=== PATIENT | male | born 1970 | race Caucasian/White ===

== ENCOUNTER 2020-06-22 00:35 | Outpatient (CLI) | payer BC, SELFPAY ==
--- NOTE | 2020-06-22 13:10 | DI.US_ITS ---
EXAM: US RENAL CLINICAL HISTORY: NEPHROLITHIASIS TECHNIQUE: Ultrasound performed using standard protocol. COMPARISON: No exams were available for comparison FINDINGS: Renal ultrasound was performed according to the usual protocol. Kidneys are normal in size and shape . There is no evidence of hydronephrosis or renal mass. There are 2 echogenic foci seen in the right renal midpole which show posterior acoustic shadowing an d twinkle artifact, these findings are consistent with renal calculi, nonobstructing. These measure 3-4 millimeters in diameter. No left renal calculi identified by ultrasound criteria. Ureteral jets are visualized bilaterally. Pre and postvoid urinary bladder volume measurements are 3 45 cc and 0 cc respectively, bladder appears intrinsically intact. IMPRESSION: Findings consistent with right renal nonobstructing nephrolithiasis. No other significant findings. DATA REPOSITORY:
== END 2020-06-22 00:55 ==
PROVIDERS: PCP Nurse Practitioner; Visit Provider Urology
DX: N20.0 Calculus of kidney (principal)
CPT/HCPCS: 76770

== ENCOUNTER 2020-06-28 00:28 | Outpatient (CLI) | payer BC, SELFPAY ==
--- NOTE | 2020-06-28 08:45 | DI.MRI_ITS ---
EXAM: MR LIMITED EXAM CLINICAL HISTORY: SHOULDER PAIN,LT,M25.519. TECHNIQUE: Multiplanar multisequence MRI was performed. COMPARISON: No exams were available for comparison FINDINGS: The patient was unable to complete the examination due to claustrophobia. Attempts to complete the e xamination 3rd on both 06/28 and 06/29/2020. The study is nondiagnostic. Hypertrophic changes are se en at the acromioclavicular joint. Does appear to be mild tendinosis of the subscapularis tendon. F luid is seen in the subdeltoid region. IMPRESSION: Nondiagnostic study as the patient was unable to complete the full examination. DATA REPOSITORY:
== END 2020-06-28 00:48 ==
PROVIDERS: PCP Nurse Practitioner; Visit Provider Nurse Practitioner
DX: M25.512 Pain in left shoulder (principal)
CPT/HCPCS: 76498

== ENCOUNTER 2020-06-29 02:40 | Outpatient (CLI) | payer BC, SELFPAY ==
[2020-06-29 10:43] LABS: Hemoglobin A1C 5.2 % (<5.7)
[2020-06-29 10:54] LABS: ALT 34 U/L (16-63); AST 17 U/L (15-37); Albumin 3.9 g/dL (3.4-5.0); Alkaline Phosphatase 70 U/L (46-116); Bilirubin, Total 0.5 mg/dL (0.2-1.0); CREATININE 0.92 mg/dL (0.70-1.30); Potassium 4.1 mmol/L (3.5-5.1); Total Protein 6.7 g/dL (6.4-8.2)
[2020-06-29 11:05] LABS: Calculated LDL 85 mg/dL (<100); Cholesterol 151 mg/dL (<200); HDL Cholesterol 38 mg/dL (40-60); Triglyceride 143 mg/dL (<150)
== END 2020-06-29 03:00 ==
PROVIDERS: PCP Nurse Practitioner; Visit Provider Nurse Practitioner
DX: I10 Essential (primary) hypertension (principal); K76.0 Fatty (change of) liver, not elsewhere classified; Z13.6 Encounter for screening for cardiovascular disorders; Z13.1 Encounter for screening for diabetes mellitus
CPT/HCPCS: 36415; 80061; 80076; 82565; 83036; 84132

== ENCOUNTER 2020-09-01 03:08 | Outpatient (CLI) | payer BC, SELFPAY ==
[2020-09-01 13:53] LABS: Anion Gap 5.6 mmol/L (3-11); BUN 12 mg/dL (7-18); CO2 30.4 mmol/L (21.0-32.0); CREATININE 0.98 mg/dL (0.70-1.30); Calcium 8.9 mg/dL (8.5-10.1); Chloride 103 mmol/L (98-107); Glucose 97 mg/dL (74-106); Potassium 4.2 mmol/L (3.5-5.1); Sodium 139 mmol/L (136-145)
== END 2020-09-01 03:28 ==
PROVIDERS: PCP Nurse Practitioner; Visit Provider Urology
DX: N20.0 Calculus of kidney (principal)
CPT/HCPCS: 36415; 80048

== ENCOUNTER 2020-10-18 03:10 | Outpatient (CLI) | payer BC, SELFPAY ==
--- NOTE | 2020-10-18 21:11 | PDOC.EEG_ITS ---
Neurology EEG EEG: [facility] Department of Neurology EEG REPORT Date of Recordin10/18/20 Interpreting Physician: Dr. Delaney Miller PCP/Referring Provider: Dr. Jhonatan Mai ([place], [place]) Reason for study: Mr. Aleman is a 50 year-old man who was having episodic olfactory hallucinations that resolved in August, but have now been replaced with spells of tunneled vision. Unclear if he is having RAMAN. Concern for seizure. Current Medications: Home Medications Medication Instructions Recorded Confirmed Type cholecalciferol (vitamin D3) 50 50 mcg PO DAILY 06/22/20 08/27/20 History mcg (2,000 unit) capsule coenzyme Q10 100 mg capsule 100 mg PO DAILY 06/22/20 08/27/20 History cyclobenzaprine 10 mg tablet 10 mg PO DAILY tab 06/22/20 08/27/20 History fremanezumab-vfrm 225 mg/1.5 mL 225 mg SUBCUT QMONTH 06/22/20 08/27/20 History subcutaneous auto-injector gabapentin 400 mg capsule 400 mg PO QID cap 06/22/20 08/27/20 History losartan 100 mg tablet 100 mg PO DAILY #90 tab 06/22/20 08/27/20 Rx magnesium citrate 100 mg tablet 100 mg PO BID 06/22/20 08/27/20 History naltrexone 50 mg tablet 50 mg PO DAILY 06/22/20 08/27/20 History potassium citrate 15 mEq (1,620 15 meq PO BID 06/22/20 08/27/20 History mg) tablet,extended release propranolol 120 mg capsule,24 120 mg PO BID cap 06/22/20 08/27/20 History hr,extended release trazodone 50 mg tablet 50 mg PO DAILY 06/22/20 08/27/20 History lorazepam 0.5 mg tablet 0.5 mg PO ONCE PRN #2 tab MDD 1 mg 06/29/20 08/27/20 Rx METHODS: A 21 channel digitized electroencephalogram was performed in the [facility]. The 10/20 international system of electrode placement was used and bipolar and referential electrode montages were recorded. In addition to EEG the patient was monitored for EKG and lateral/vertical eye movements. Activation procedures of photic stimulation and hyperventilation were performed if applicable. Video was used during activation procedures and during events where applicable. The duration of the recording was 30 minutes. DESCRIPTION OF EEG: The patient was noted to be awake only during the recording. During maximal wakefulness a 9-Hz posterior background rhythm was present which was well- modulated, symmetrical, reactive to eye opening, and of moderate voltage. With eye opening the background activity changed to a low voltage mixture of alpha, beta, and occasional theta range frequencies. Faster frequencies were present i n the bilateral anterior head regions. There was a normal anterior-posterior voltage gradient. No drowsiness or stage II sleep was recorded. Activating Procedures: Photic stimulation was performed which produced a symmetrical posterior driving response at various flash frequencies. Hyperventilation was performed with moderate effort and produced no physiological slowing of the background. EKG: EKG revealed normal sinus rhythm. INTERPRETATION: This EEG is normal during the awake state as well as during photic stimulation and hyperventilation. PRIOR EEG: none CLINICAL CORRELATION: No focal regions of cerebral dysfunction or epileptiform activity was present. No sleep was recorded during the study which reduces the sensitivity of the exam. If seizure remains a part of the differential, consider a repeat sleep- deprived EEG or overnight ambulatory EEG. Epilepsy remains a clinical diagnosis and a normal EEG does not rule out epilepsy. Clinical correlation is advised. Delaney Miller MD
== END 2020-10-18 03:30 ==
PROVIDERS: PCP Nurse Practitioner; Visit Provider Nurse Practitioner
DX: G43.109 Migraine with aura, not intractable, without status migrainosus (principal); G40.909 Epilepsy, unspecified, not intractable, without status epilepticus
CPT/HCPCS: 95816

== ENCOUNTER 2021-05-03 15:55 | Emergency (ER) | payer BC, SELFPAY ==
[2021-05-03 15:58] VITALS: BP 136/84; PULSE 78; RESP 17; TEMP 36.4; O2SAT 96
--- NOTE | 2021-05-03 16:06 | W.ED.GENAD ---
Discharge Plan Disposition Patient Disposition: HOME Condition: Stable Discharge Details Clinical Impression: Laceration of finger of left hand Primary Care Provider: Alison Burns ED Provider: Linda Oates Home Meds and New Rx's Prescriptions: New cephalexin 500 mg tablet 500 mg PO BID 5 Days Qty: 10 RF: 0 No Action Ajovy Autoinjector 225 mg/1.5 mL auto-injector 225 mg subcut QMONTH RF: 0 trazodone 50 mg tablet 50 mg PO DAILY RF: 0 gabapentin 400 mg capsule 400 mg PO QID RF: 0 naltrexone 50 mg tablet 50 mg PO DAILY RF: 0 potassium citrate 15 mEq tablet extended release 15 meq PO BID RF: 0 magnesium citrate 100 mg tablet 100 mg PO BID RF: 0 coenzyme Q10 [CoQ-10] 100 mg capsule 100 mg PO DAILY RF: 0 cholecalciferol (vitamin D3) 50 mcg (2,000 unit) capsule 50 mcg PO DAILY RF: 0 losartan 100 mg tablet 100 mg PO DAILY Qty: 90 RF: 3 methocarbamol 500 mg tablet 500 mg PO QID Qty: 60 RF: 0 propranolol 160 mg capsule,extended release 24 hr 160 mg PO DAILY Qty: 90 RF: 4 amlodipine 5 mg tablet 5 mg PO DAILY Qty: 90 RF: 4 hydrochlorothiazide 25 mg tablet 25 mg PO DAILY RF: 0 Discharge Instructions Instructions: Finger Laceration (ED), Skin Adhesive Care (ED) Additional Instructions: Take antibiotic as directed twice daily for the next 5 days. Use splint for the next 2 to 3 days. Skin adhesive will start slough off in approximately 4 to 6 days. Return to the ER or be seen sooner for any signs of infection including increased redness, swelling, drainage or red streaks. Keep clean and dry. No soaking Referrals: Alison Burns, [employer]INUOUS IMPROVEMENT MANAGER [Primary Care Provider] - Discharge Data Discharge Date/Time-TO BE ENTERED AT DEPARTURE: 05/03/21 16:46 Medical Decision Making 51-year-old male presents to the ER chief complaint of hand laceration. Patient states 20 minutes prior to arrival he was moving a refrigerator and cut the dorsum of his left index middle and ring finger on the coils. He has full range of motion noted to his hand, distal CMS intact. Cap refill less than 2 seconds. Last tetanus was approximately 11 years ago. Bleeding is controlled with pressure. Tissue adhesive applied, Finger splints and Patient given Cephalexin 500 mg PO BID x 5 days. First dose given here in department. Instructed on home care and strict return instructions, verbalized understanding. HPI General Mode of arrival: ambulatory. Date/Time Provider Initiated Documentation: 05/03/21 15:59. Limitations to Documentation: no limitations. Information obtained by: patient. HPI Narrative: 51-year-old male presents to the ER chief complaint of hand laceration. Patient states 20 minutes prior to arrival he was moving a refrigerator and cut the dorsum of his left index middle and ring finger on the coils. He has full range of motion noted to his hand, distal CMS intact. Cap refill less than 2 seconds. Last tetanus was approximately 11 years ago. Bleeding is controlled with pressure. Related Data Home Medications Medication Instructions Recorded Confirmed cholecalciferol (vitamin D3) 50 50 mcg PO DAILY 06/22/20 05/03/21 mcg (2,000 unit) capsule coenzyme Q10 100 mg capsule 100 mg PO DAILY 06/22/20 05/03/21 fremanezumab-vfrm 225 mg/1.5 mL 225 mg SUBCUT QMONTH 06/22/20 05/03/21 subcutaneous auto-injector gabapentin 400 mg capsule 400 mg PO QID cap 06/22/20 04/29/21 losartan 100 mg tablet 100 mg PO DAILY #90 tab 06/22/20 05/03/21 magnesium citrate 100 mg tablet 100 mg PO BID 06/22/20 05/03/21 naltrexone 50 mg tablet 50 mg PO DAILY 06/22/20 05/03/21 potassium citrate 15 mEq (1,620 15 meq PO BID 06/22/20 05/03/21 mg) tablet,extended release trazodone 50 mg tablet 50 mg PO DAILY 06/22/20 05/03/21 amlodipine 5 mg tablet 5 mg PO DAILY #90 tab 01/04/21 05/03/21 methocarbamol 500 mg tablet 500 mg PO QID #60 tab 04/29/21 05/03/21 propranolol 160 mg capsule,24 160 mg PO DAILY #90 cap 04/29/21 05/03/21 hr,extended release cephalexin 500 mg PO BID 5 Days #10 tab 05/03/21 hydrochlorothiazide 25 mg PO DAILY 05/03/21 05/03/21 Previous Rx's Medication Instructions Recorded losartan 100 mg tablet 100 mg PO DAILY #90 tab 06/22/20 amlodipine 5 mg tablet 5 mg PO DAILY #90 tab 01/04/21 methocarbamol 500 mg tablet 500 mg PO QID #60 tab 04/29/21 propranolol 160 mg capsule,24 160 mg PO DAILY #90 cap 04/29/21 hr,extended release cephalexin 500 mg PO BID 5 Days #10 tab 05/03/21 Allergies Allergy/AdvReac Type Severity Reaction Status Date / Time levetiracetam [From Keppra] Allergy Unknown Verified 05/03/21 16:06 orphenadrine [From Norflex] Allergy Unknown Verified 05/03/21 16:06 pregabalin [From Lyrica] Allergy Unknown Verified 05/03/21 16:06 rabeprazole [From AcipHex] AdvReac Unknown Verified 05/03/21 16:06 verapamil AdvReac Unknown Rash Verified 05/03/21 16:06 duloxetine [From Cymbalta] AdvReac Verified 05/03/21 16:06 General Stated Complaint: Laceration MADELINE: 5 Review of Systems All systems reviewed & are unremarkable except as noted in HPI and below Integumentary/Breasts Skin/Breast: Reports wounds (Left Hand lacerations) [facility], [facility] Medical History Chronic daily headache Fatty liver Hemorrhoids s/p surgery Hepatitis B surface antigen positive (~2011) HTN (hypertension) IBS (irritable bowel syndrome) Lateral epicondylitis Renal stones 06/2020- 4 in r kidney, not problematic S/P extracorporeal shock wave therapy (~11/2016) Traumatic amputation Finger, right index Surgical History 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 Father , 71 Diabetes Stroke Hypertension Alcohol abuse Heart disease Maternal Grandmother , 94's No problems noted. Social History Smoking/Tobacco Use Status: Former Tobacco Use Quit status: has quit before Second Hand Exposure: Yes Smoking risk assessment performed?: Yes Alcohol Intake: former Drug use: Never Caregiver/Support person: No Household members: spouse Housing: house Pets and animals: Yes Pets and animals: cat(s) Sexually active: Yes Current gender identity: male What is your relationship status?: How often do you talk on the phone with friends or family?: decline to answer How often do you get together with friends or relatives?: decline to answer How often do you attend christian or anglican services?: decline to answer Do you belong to any clubs or organized social groups?: decline to answer Panel score (0-1 are the most socially isolated patients): 1 Special fay needs: No Seatbelt use: always Do you feel safe at home: Yes Do you feel safe in your relationship?: Yes Exam Const General: cooperative, healthy appearing, comfortable, well developed and well groomed Nutritional Appearance: average body habitus and well nourished Orientation: alert, awake and oriented x3 Extrem Left upper extremity: full ROM, normal capillary refill and hand Details: normal ROM of fingers and laceration Hand/finger images: 1. Approximately 1 cm laceration over the PIP joint 2. Likely 1 cm laceration over the PIP joint 3. Small subcentimeter laceration Course Vital Signs Vital signs: Vital Signs Temperature 36.4 C L 05/03/21 15:58 Pulse 78 05/03/21 15:58 Respiratory Rate 17 05/03/21 15:58 Blood Pressure 136/84 05/03/21 15:58 Pulse Oximetry 96 05/03/21 15:58 Temperature 36.4 C L 05/03/21 15:58 Temperature Source Temporal Artery Scan 05/03/21 15:58 Pulse 78 05/03/21 15:58 Respiratory Rate 17 05/03/21 15:58 Respiratory Effort Non-Labored 05/03/21 16:04 Blood Pressure 136/84 05/03/21 15:58 Blood Pressure Position Sitting 05/03/21 15:58 Pulse Oximetry 96 05/03/21 15:58 Oxygen Delivery Method Room Air 05/03/21 15:58 Oxygen Flow Rate 0 05/03/21 15:58 Pain Level 2 05/03/21 15:58
[2021-05-03] MEDS: Cephalexin 500 MG CAP PO (16:39)
[2021-05-03] MEDS: Cephalexin 500 MG CAP, 4 CAPS/BTL PO (16:42)
== END 2021-05-03 16:46 | disposition home or self-care (01) ==
PROVIDERS: Emergency Provider Registered Nurse Emergency; PCP Nurse Practitioner
DX: S61.211A Laceration without foreign body of left index finger without damage to nail, initial encounter (principal); S61.215A Laceration without foreign body of left ring finger without damage to nail, initial encounter; W26.8XXA Contact with other sharp object(s), not elsewhere classified, initial encounter
CPT/HCPCS: 12001; 90471

== ENCOUNTER 2022-02-01 04:46 | Outpatient (CLI) | payer BC, SELFPAY ==
[2022-02-01 09:20] LABS: ALT 24 U/L (16-63); AST 13 U/L (15-37); Albumin 3.9 g/dL (3.4-5.0); Alkaline Phosphatase 82 U/L (46-116); Anion Gap 4.5 mmol/L (3-11); BUN 20 mg/dL (7-18); Bilirubin, Total 0.6 mg/dL (0.2-1.0); CO2 32.5 mmol/L (21.0-32.0); CREATININE 0.9 mg/dL (0.70-1.30); Calcium 8.7 mg/dL (8.5-10.1); Chloride 105 mmol/L (98-107); Glucose 92 mg/dL (74-106); Potassium 4.1 mmol/L (3.5-5.1); Sodium 142 mmol/L (136-145); Total Protein 6.8 g/dL (6.4-8.2)
[2022-02-02 10:23] LABS: HBs Antibody, Qual Positive (See Note); HBs Antibody, Quant 63.4 mIU/mL (See Note); Hepatitis B Core Antibody Negative (Negative); Hepatitis B surface Ag Negative (Negative); Hepatitis C Ab w Rflx HCV PCR Negative (Negative)
== END 2022-02-01 04:47 | disposition home or self-care (01) ==
LOC: LBO 04:46
PROVIDERS: PCP Nurse Practitioner; Visit Provider Nurse Practitioner
DX: K76.0 Fatty (change of) liver, not elsewhere classified (principal); R76.8 Other specified abnormal immunological findings in serum
CPT/HCPCS: 36415; 80053; 86704; 86706; 86803; 87340

== ENCOUNTER 2022-06-21 11:00 | Outpatient (CLI) | payer BC, SELFPAY ==
--- NOTE | 2022-06-21 11:00 | RT.EKG_ITS ---
APPROVED REPORT Exam: Resting ECG Reason for Exam: Pre-operative cardiovascular examiniation Patient Location: O HR:58 bpm ECG Measurements Heart Rate 58 AXIS ID 145 P 29 QRSd 107 QRS -10 QT 417 T 12 QTc 410 Conclusion Sinus rhythm...normal P axis, V-rate 50- 99 Normal Electrocardiogram
== END 2022-06-21 11:01 | disposition home or self-care (01) ==
LOC: DI.CM 11:01
PROVIDERS: PCP Nurse Practitioner; Visit Provider Nurse Practitioner Family
DX: Z01.810 Encounter for preprocedural cardiovascular examination (principal)
CPT/HCPCS: 93010

== ENCOUNTER 2022-12-28 04:27 | Outpatient (CLI) | payer BC, SELFPAY ==
[2022-12-28 16:45] LABS: Anion Gap 4.4 mmol/L (3-11); BUN 13 mg/dL (7-18); CO2 31.6 mmol/L (21.0-32.0); Calcium 8.8 mg/dL (8.5-10.1); Chloride 107 mmol/L (98-107); Estimated GFR 90.56 (mL/min/1.73m2); Glucose 113 mg/dL (74-106); Potassium 4.1 mmol/L (3.5-5.1); Sodium 143 mmol/L (136-145)
== END 2022-12-28 04:28 | disposition home or self-care (01) ==
PROVIDERS: PCP Nurse Practitioner Family; Visit Provider Nurse Practitioner Family
DX: I10 Essential (primary) hypertension (principal)
CPT/HCPCS: 36415; 80048

== ENCOUNTER 2023-05-14 01:39 | Outpatient (CLI) | payer BC, SELFPAY ==
--- NOTE | 2023-05-14 08:00 | DI.RAD_ITS ---
Exam(s) XR LUMBAR SPINE COMPLETE EXAM: XR LUMBAR SPINE COMPLETE CLINICAL HISTORY: increasing pain and numbness,m54.50,r20.2,paresthesias. TECHNIQUE: 2D digital imaging was performed. Five views. COMPARISON: No exams were available for comparison FINDINGS: BONES: No fracture or destructive lesion. Vertebral body heights are maintained. Small endplate oste ophytes. Mild to moderate facet hypertrophy identified L4-5 and L5-S1.. DISKS: Intervertebral disc spaces are maintained. ALIGNMENT: Lumbar spinal alignment is within normal limits. SOFT TISSUE: Normal. IMPRESSION: Mild to moderate facet degenerative changes L4-5 and L5-S1. DATA REPOSITORY: RADIATION DOSE DELIVERED:
== END 2023-05-14 01:59 ==
LOC: DI 01:39
PROVIDERS: PCP Nurse Practitioner Family; Visit Provider Nurse Practitioner Family
DX: M47.816 Spondylosis without myelopathy or radiculopathy, lumbar region (principal)
CPT/HCPCS: 72110

== ENCOUNTER 2024-02-05 14:47 | Outpatient (REF) | payer BC, SELFPAY ==
[2024-02-05 12:09] LABS: HCT 40.9 % (40.0-50.0); HGB 14.5 g/dL (13.5-17.5); MCH 32.1 pg (27.0-33.0); MCHC 35.5 % (32.0-36.0); MCV 91 fL (80-95); MPV 10.6 fL (8.0-11.0); Platelet Count 223 10^3/uL (130-400); RBC 4.52 10^6/uL (4.36-5.78); WBC 6.35 10^3/uL (4.4-10.8)
[2024-02-05 12:21] LABS: ALT 27 U/L (16-63); AST 14 U/L (15-37); Albumin 3.9 g/dL (3.4-5.0); Alkaline Phosphatase 64 U/L (46-116); Anion Gap 5.3 mmol/L (3-11); BUN 17 mg/dL (7-18); Bilirubin, Total 0.5 mg/dL (0.2-1.0); CO2 28.7 mmol/L (21.0-32.0); Calcium 8.9 mg/dL (8.5-10.1); Calculated LDL 59 mg/dL (<100); Chloride 104 mmol/L (98-107); Cholesterol 121 mg/dL (<200); Glucose 120 mg/dL (74-106); HDL Cholesterol 37 mg/dL (40-60); Potassium 3.9 mmol/L (3.5-5.1); Sodium 138 mmol/L (136-145); Triglyceride 126 mg/dL (<150)
== END 2024-02-05 14:48 | disposition home or self-care (01) ==
LOC: LBN 14:47
PROVIDERS: PCP Nurse Practitioner Family; Visit Provider Nurse Practitioner Family
DX: Z13.220 Encounter for screening for lipoid disorders (principal); R42 Dizziness and giddiness
CPT/HCPCS: 80053; 80061; 85027

== ENCOUNTER 2024-03-18 21:04 | Outpatient (REF) | payer BC, SELFPAY | END 2024-03-18 21:05 | disposition home or self-care (01) | LOC: LBN 21:04 | PROVIDERS: PCP Nurse Practitioner Family; Visit Provider Nurse Practitioner Family | DX: S09.392A Other specified injury of left middle and inner ear, initial encounter (principal); X58.XXXA Exposure to other specified factors, initial encounter | CPT/HCPCS: 87070; 87205 ==

== ENCOUNTER 2024-04-23 11:32 | Outpatient (CLI) | payer BC, SELFPAY ==
--- NOTE | 2024-04-23 11:30 | RT.EKG_ITS ---
APPROVED REPORT Exam: Resting ECG Reason for Exam: Pre-op Patient Location: O HR:98 bpm ECG Measurements Heart Rate 98 AXIS RI 151 P 66 QRSd 103 QRS -15 QT 363 T 31 QTc 464 Conclusion Sinus rhythm...normal P axis, V-rate 50- 99 Borderline left axis deviation...QRS axis (-15,-29) Abnormal R-wave progression, early transition...QRS area>0 in V2
== END 2024-04-23 11:33 | disposition home or self-care (01) ==
LOC: DI.CM 11:34
PROVIDERS: PCP Nurse Practitioner Family; Visit Provider Nurse Practitioner Family
DX: Z01.818 Encounter for other preprocedural examination (principal); R94.31 Abnormal electrocardiogram [ECG] [EKG]
CPT/HCPCS: 93010

== ENCOUNTER 2024-08-07 03:07 | Outpatient (CLI) | payer BC, SELFPAY ==
[2024-08-07 15:05] LABS: ESR 4 mm/hr (0-20)
[2024-08-07 15:19] LABS: C-Reactive Protein 0.64 mg/dL (<or=0.5); Uric Acid 6.2 mg/dL (3.5-7.2)
[2024-08-08 13:52] LABS: Lyme Ab w Rflx to Lyme Confirm Negative (Negative)
[2024-08-10 14:35] LABS: Anaplasma phagocytophilum Negative (Negative); B. miyamotoi PCR Negative (Negative); Babesia divergens/MO-1 Negative (Negative); Babesia duncani Negative (Negative); Babesia microti Negative (Negative); Ehrlichia chaffeensis Negative (Negative); Ehrlichia ewingii/canis Negative (Negative); Ehrlichia muris eauclairensis Negative (Negative)
== END 2024-08-07 03:08 | disposition home or self-care (01) ==
PROVIDERS: PCP Nurse Practitioner Family; Visit Provider Nurse Practitioner Family
DX: M25.40 Effusion, unspecified joint (principal); Z23 Encounter for immunization; H93.19 Tinnitus, unspecified ear; R51.9 Headache, unspecified
CPT/HCPCS: 36415; 85652; 87798; 84550; 86140; 86618

== ENCOUNTER 2024-10-13 03:06 | Outpatient (CLI) | payer BC, SELFPAY ==
--- NOTE | 2024-10-13 08:10 | DI.RAD_ITS ---
Exam(s) XR CERVICAL SPINE COMP 4-5V EXAM: XR CERVICAL SPINE COMP 4-5V CLINICAL HISTORY: new tingling post-op,NECK PAIN, RT CERVICAL RADICULOPATHY,M54.2,M54.12. TECHNIQUE: 2D digital imaging was performed. COMPARISON: No previous exams were available for comparison FINDINGS: Five views There is a tri level anterior fusion plate secured by single screws at C5, C6, and C7 levels. There are also identical intervertebral disc space devices at C5-6 and C6-7 disc space levels. These appea r to be in satisfactory position and without retropulsion. There is no evidence of hardware fracture . No abnormal lucency around the screws. No evidence of osteomyelitis. There is only minimal narro wing of the disc space above the fusion level, this being C4-5. The C7-T1 disc space exhibits normal height. There is minimal facet arthropathy. No cervical ribs evident. On the oblique views there are no significant Luschka joint osteophytes evident. IMPRESSION: Tri level C5-6-7 fusion plate which appears intact/satisfactory as do the C5-6 and C6-7 disc space de vices. DATA REPOSITORY: RADIATION DOSE DELIVERED:
== END 2024-10-13 03:26 ==
LOC: DI 03:06
PROVIDERS: PCP Nurse Practitioner Family; Visit Provider Nurse Practitioner Family
DX: M54.12 Radiculopathy, cervical region (principal)
CPT/HCPCS: 72050

== ENCOUNTER 2025-02-06 22:29 | Outpatient (REF) | payer BC, SELFPAY ==
[2025-02-06 22:07] LABS: ALT 40 U/L (16-63); AST 23 U/L (15-37); Albumin 4.3 g/dL (3.4-5.0); Alkaline Phosphatase 76 U/L (46-116); Anion Gap 8.4 mmol/L (3-11); BUN 16 mg/dL (7-18); Bilirubin, Total 0.6 mg/dL (0.2-1.0); CO2 28.6 mmol/L (21.0-32.0); Calcium 9.7 mg/dL (8.5-10.1); Chloride 104 mmol/L (98-107); Estimated GFR 89.44 (mL/min/1.73m2); Glucose 95 mg/dL (74-106); Potassium 4.3 mmol/L (3.5-5.1); Sodium 141 mmol/L (136-145); Total Protein 7.6 g/dL (6.4-8.2)
== END 2025-02-06 22:30 | disposition home or self-care (01) ==
LOC: LBN 22:29
PROVIDERS: PCP Nurse Practitioner Family; Visit Provider Nurse Practitioner Family
DX: K76.0 Fatty (change of) liver, not elsewhere classified (principal)
CPT/HCPCS: 80053

== ENCOUNTER → 2025-08-13 02:24 | Outpatient (CLI) | payer BC, SELFPAY ==
--- NOTE | 2025-08-13 10:28 | DI.RAD_ITS ---
Exam(s) XR KNEE LT 3V AP,LAT,RAHEEM EXAM: XR KNEE LT 3V AP,LAT,RAHEEM CLINICAL HISTORY: swelling, after missing step,lt knee pain,m25.562. TECHNIQUE: 2D digital imaging was performed of the left knee. Three images were obtained. AP, lateral and PA tunnel views were obtained. COMPARISON: No exams were available for comparison FINDINGS: BONES: No acute fracture is present. No bony destructive lesion is seen. Intramedullary amorphous calcifications are seen in the distal metaphysis of the left femur. Primary diagnostic consideration is for an enchondroma. There are enthesophytes at the anterior patella. JOINTS: There is a small osteophyte at the posterior patella. There is a small joint effusion. No loose body. SOFT TISSUE: Normal. IMPRESSION: Minimal degenerative changes and small joint effusion. DATA REPOSITORY: RADIATION DOSE DELIVERED:
== END ==
LOC: DI 02:24
PROVIDERS: PCP Nurse Practitioner Family; Visit Provider Nurse Practitioner Family
DX: M25.562 Pain in left knee (principal); M17.12 Unilateral primary osteoarthritis, left knee; M25.462 Effusion, left knee
CPT/HCPCS: 73562

== ENCOUNTER 2025-09-08 14:00 | Outpatient (CLI) | payer BC, SELFPAY ==
[2025-09-08 16:27] LABS: Abs Immature Grans 0.01 10^3/uL (0.0-0.06); HCT 40.0 % (40.0-50.0); HGB 14.1 g/dL (13.5-17.5); Immature Grans % 0.1 %; MCH 31.9 pg (27.0-33.0); MCHC 35.3 % (32.0-36.0); MCV 91 fL (80-95); MPV 10.7 fL (8.0-11.0); Platelet Count 294 10^3/uL (130-400); RBC 4.42 10^6/uL (4.36-5.78); RDW 11.9 % (11.8-14.1); RDW-SD 39.0 fL; WBC 8.83 10^3/uL (4.4-10.8)
[2025-09-08 16:30] LABS: C-Reactive Protein < 0.50 mg/dL (<=0.50)
[2025-09-08 16:31] LABS: ESR 3 mm/hr (0-20)
[2025-09-08 16:32] LABS: LDH 163 U/L (120-246)
[2025-09-08 16:33] LABS: ALT 16 U/L (10-49); AST 18 U/L (<34); Albumin 4.2 g/dL (3.2-5.0); Alkaline Phosphatase 68 U/L (46-116); Anion Gap 5.8 mmol/L (3-11); BUN 10 mg/dL (9-23); Bilirubin, Total 0.50 mg/dL (0.2-1.2); CO2 31.2 mmol/L (20.0-31.0); Calcium 9.0 mg/dL (8.3-10.6); Chloride 104 mmol/L (98-107); Glucose 88 mg/dL (74-106); Potassium 3.6 mmol/L (3.5-5.1); Sodium 141 mmol/L (136-145); Total Protein 7.1 g/dL (5.7-8.2)
[2025-09-08 16:34] LABS: TSH (W/Ref FT4) 1.64 uIU/mL (0.55-4.78)
[2025-09-09 19:20] LABS: HIV-1/2 Ag & Ab Screen Negative (Negative)
[2025-09-09 19:22] LABS: HBs Antibody, Qual Positive (See Note); HBs Antibody, Quant 34.1 mIU/mL (See Note); Hepatitis C Ab w Rflx HCV PCR Negative (Negative)
== END 2025-09-08 14:01 | disposition home or self-care (01) ==
LOC: LOS 14:00
PROVIDERS: PCP Nurse Practitioner Family; Visit Provider Nurse Practitioner Family
DX: R63.4 Abnormal weight loss (principal)
CPT/HCPCS: 36415; 80053; 85652; 86704; 86706; 86803; 87340; 87389; 83615; 84443; 85025; 86140

== ENCOUNTER 2025-09-14 19:26 | Outpatient (REF) | payer BC, SELFPAY ==
[2025-09-18 13:48] LABS: Helicobacter pylori Ag, Feces Negative (Negative)
== END 2025-09-14 19:27 | disposition home or self-care (01) ==
LOC: LBN 19:26
PROVIDERS: PCP Nurse Practitioner Family; Visit Provider Nurse Practitioner Family
DX: R63.4 Abnormal weight loss (principal)
CPT/HCPCS: 87338

== ENCOUNTER → 2025-09-23 00:08 | Outpatient (CLI) | payer BC, SELFPAY ==
--- NOTE | 2025-09-23 07:48 | DI.CT_ITS ---
Exam(s) CT CHEST/ABD/PEL W EXAM: CT CHEST/ABD/PEL W CLINICAL HISTORY: 40 pound weight loss, unintentional,r63.4. TECHNIQUE: Imaging Protocol: Axial computed tomography images with coronal and sagittal reformatted images were created and reviewed. Computer aided detection (CAD) was utilized. CONTRAST MATERIAL: Intravenous: Omnipaque 350 Contrast volume:100 ml Oral: yes/900 mL Readi-Cat COMPARISON: US US RENAL from 09/03/2023 FINDINGS: CHEST: Pulmonary parenchyma: No consolidation. No dominant measurable mass. Tracheobronchial tree: No bronchiectasis. No mucous plugging.No bronchial wall thickening. Pleura: No effusion or pneumothorax. Mediastinum: Within normal limits. Pulmonary arteries: No visible emboli. Cardiovascular: No pericardial effusion. Thoracic aorta non-dilated. Bones: Unremarkable for age. No lytic or blastic lesions. No compression fractures. Soft tissues: Unremarkable. ABDOMEN and PELVIS: Liver: Normal density. No suspicious mass. Gallbladder and biliary tract: No evidence of stones or wall thickening. No biliary dilatation. Pancreas: Normal density, no abnormal calcifications or inflammatory process. Spleen: Normal. Kidneys: Normal size, contour and axis. No bilateral nonobstructing stones. No obstructive uropathy. No suspicious masses seen. Adrenal glands: No masses seen. Aorta: Abdominal portion non-dilated. Lymph nodes: Within normal limits. Soft tissues: Small bilateral fat containing inguinal hernias Bladder: Unremarkable. Bowel: No obstruction or bowel wall thickening. The appendix is normal. Normal quantity of stool. Peritoneal cavity: No ascites. No focal collection. No mesenteric inflammatory response. No free air. Bones: Degenerative changes greatest of the facet joints in the lower lumbar spine endplate osteophytes, greater in the thoracic spine. Reproductive organs: The prostate is normal in size. Small bilateral hydroceles. IMPRESSION: No acute abnormality in the chest, abdomen or pelvis. RADIATION DOSE DELIVERED: 540.49mGy.cm Total DLP DATA REPOSITORY: All CT scans at this facility are submitted to the National Radiology Data Registry (NRDR) Dose Index Registry (DIR) with the [employer] ([employer]). RADIATION OPTIMIZATION: All CT scans at this facility use at least one of these dose optimization techniques: automated exposure control; mA and/or kV adjustment per patient size (includes targeted exams where dose is matched to clinical indication); or iterative reconstruction.
[2025-09-23] MEDS: Barium Sulfate 2% W/V-Creamy Vanilla Smoothie 450 ML BTL PO (11:38)
[2025-09-23] MEDS: Barium Sulfate 2% W/V-Berry Smoothie 450 ML BTL PO (11:39)
[2025-09-23] MEDS: Omnipaque 350 MG/ML 100 ML BTL IJ (13:50)
[2025-09-23] MEDS: Normal Saline - Diluent 50 ML VIAL IJ (13:50)
[2025-09-23] MEDS: Normal Saline Flush 10 ML SYR IVP (13:51)
== END ==
LOC: DI 00:08
PROVIDERS: PCP Nurse Practitioner Family; Visit Provider Nurse Practitioner Family
DX: R63.4 Abnormal weight loss (principal)
CPT/HCPCS: 74177; 71260; J3490

== ENCOUNTER 2025-09-30 10:27 | Day surgery (SDC) | payer BC, SELFPAY ==
[2025-09-30 10:42] VITALS: BP 108/87; PULSE 93; RESP 18; TEMP 36.2; O2SAT 98
[2025-09-30] MEDS: Lactated Ringers 1,000 ML 80 ML IV (10:54)
--- NOTE | 2025-09-30 11:13 | W.ANESPRE ---
General Info Date of Service Date Performed: 09/30/25 Height: 6 ft Weight: 97.2 kg Body Mass Index (BMI): 29.0 Surgical Procedure: Operation Date: 09/30/25 11:50 Proposed Procedure Side Surgeon p Colonoscopy/Gastroscopy Maria Antonia Morocho MD Meds Allergies and Home Medications Allergies Allergy/AdvReac Type Severity Reaction Status Date / Time midazolam (From Versed) Allergy Severe Headache Verified 09/30/25 10:49 levetiracetam (From Keppra) Allergy Unknown Diarrhea Verified 09/30/25 10:49 orphenadrine (From Norflex) Allergy Unknown Diarrhea Verified 09/30/25 10:49 pregabalin (From Lyrica) Allergy Unknown Diarrhea Verified 09/30/25 10:49 prednisone AdvReac Severe Other (See Verified 09/30/25 10:49 Comment) rabeprazole (From AcipHex) AdvReac Unknown Diarrhea Verified 09/30/25 10:49 verapamil AdvReac Unknown Rash Verified 09/30/25 10:49 duloxetine (From Cymbalta) AdvReac Diarrhea Verified 09/30/25 10:49 Home Medication ?Medication ?Instructions ?Recorded cholecalciferol (vitamin D3) 50 50 mcg PO DAILY 06/22/20 mcg (2,000 unit) capsule coenzyme Q10 100 mg capsule 100 mg PO DAILY 06/22/20 (CoQ-10) magnesium citrate 100 mg tablet 100 mg PO BID 06/22/20 potassium citrate 15 mEq (1,620 15 meq PO BID 06/22/20 mg) tablet,extended release trazodone 50 mg tablet 50 mg PO DAILY 06/22/20 fremanezumab-vfrm 225 mg/1.5 mL mg subcut 08/03/23 subcutaneous syringe (Ajovy Syringe) gabapentin 400 mg capsule 400 mg PO TID 08/03/23 ubrogepant 50 mg tablet (Ubrelvy) 50 mg PO ONCE 08/03/23 inhalational spacing device #1 ea 08/21/23 (Aerochamber MV spacer) chlorthalidone 25 mg tablet 25 mg PO DAILY 02/06/25 albuterol sulfate 90 mcg/actuation 2 inh inhalation Q6H PRN shortness 05/14/25 aerosol inhaler of breath or wheezing #18 grams losartan 100 mg tablet See Rx Instructions .Route 06/01/25 .COMPLEX #90 tabs bisacodyl 5 mg tablet,delayed 5 mg PO ONCE Colonoscopy Bowel 09/18/25 release Prep #4 tabs polyethylene glycol 3350 17 238 g PO ONCE #238 grams 09/18/25 gram/dose oral powder Current Visit Medications: Current Medications Generic Name Dose Route Start Last Admin Trade Name Freq PRN Reason Stop Dose Admin Ringer's Solution 1,000 mls @ 80 mls/hr 09/30/25 06:00 09/30/25 10:54 IV 09/30/25 23:59 80 mls/hr INFUSION PATRICE Administration Sodium Chloride 0 ml 09/30/25 06:00 Normal Saline Flush 10 Ml Syr IV 09/30/25 23:59 PRN PRN Sodium Chloride 0 ml 09/30/25 06:00 Normal Saline 10 Ml Vial IJ 09/30/25 23:59 DIRECTED PRN Sterile Water 0 ml 09/30/25 06:00 Water,Injection,Sterile 10 Ml Vial IJ 09/30/25 23:59 DIRECTED PRN PFSH Active Problems Active Problems: Problem Status Onset Code Weight loss Acute R63.4 Left knee pain Acute M25.562 Joint swelling Acute M25.40 Tinnitus Acute H93.19 Dizziness Acute R42 Headache, chronic daily Acute R51.9 HTN (hypertension) Chronic I10 Renal stones Chronic N20.0 Chronic daily headache Acute R51 IBS (irritable bowel syndrome) Chronic K58.9 Fatty liver Acute K76.0 Hepatitis B surface antigen positive Acute ~2011 R76.8 Shoulder pain Acute M25.519 Obesity Chronic E66.9 Sleep apnea Acute G47.30 Muscle spasms of neck Acute M62.838 Right cervical radiculopathy Acute M54.12 Screening for colon cancer Acute Z12.11 Lower back pain Acute M54.50 Paresthesias Acute R20.2 Anxiety Chronic F41.9 Medical History Medical History Pre-op evaluation Pneumonia Neck pain Intractable headache Insomnia S/P extracorporeal shock wave therapy (~11/2016) Traumatic amputation Finger, right index Lateral epicondylitis Hemorrhoids s/p surgery Surgical History Surgical History History of arthroscopy of right shoulder History of arthroscopy of left shoulder 2003 slap and bicep tendon repair 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 H/O vasectomy Tobacco Smoking/Tobacco Use Status: Former Tobacco Use Passive smoking exposure: No Second hand exposure: Yes Alcohol Alcohol Intake: former Substance Use Substance use: Never Substance use type: does not use Vital Signs and Lab Results Vital Signs Most Recent Vital Signs in EMR: Most Recent Vital Signs Temp Pulse Resp BP Pulse Ox 36.2 C L 93 H 18 108/87 98 09/30/25 10:42 09/30/25 10:42 09/30/25 10:42 09/30/25 10:42 09/30/25 10:42 Lab Results Complete Blood Count: WBC, (4.4-10.8) 8.83 10^3/uL 09/08/25, 14:19 RBC, (4.36-5.78) 4.42 10^6/uL 09/08/25, 14:19 Hgb, (13.5-17.5) 14.1 g/dL 09/08/25, 14:19 Hct, (40.0-50.0) 40.0 % 09/08/25, 14:19 Plt Count, (130-400) 294 10^3/uL 09/08/25, 14:19 Complete Metabolic Panel: Sodium, (136-145) 141 mmol/L 09/08/25, 14:19 Potassium, (3.5-5.1) 3.6 mmol/L 09/08/25, 14:19 Chloride, (98-107) 104 mmol/L 09/08/25, 14:19 Carbon Dioxide, (20.0-31.0) 31.2 mmol/L H 09/08/25, 14:19 BUN, (9-23) 10 mg/dL 09/08/25, 14:19 Creatinine, (0.73-1.18) 0.79 mg/dL 09/08/25, 14:19 Est GFR (CKD-EPI 2020), (mL/min/1.73m2) 101.62 09/08/25, 14:19 Calcium, (8.3-10.6) 9.0 mg/dL 09/08/25, 14:19 Albumin, (3.2-5.0) 4.2 g/dL 09/08/25, 14:19 Glucose, (74-106) 88 mg/dL 09/08/25, 14:19 C-Reactive Protein, (<=0.50) < 0.50 mg/dL 09/08/25, 14:19 Liver Function Panel: ALT, (10-49) 16 U/L 09/08/25, 14:19 AST, (<34) 18 U/L 09/08/25, 14:19 Thyroid Panel: TSH, (0.55-4.78) 1.64 uIU/mL 09/08/25, 14:19 Infectious Disease: HIV 1&2 Ag/Ab, 4th Gen, (Negative) Negative 09/08/25, 14: Hep Bs Antigen, (Negative) Negative 09/08/25, : Hepatitis C Antibody, (Negative) Negative 09/08/25, : Imaging and Studies Imaging and Studies Study information below may be from another EMR and interpreted by another provider. Please see original notes in EMR for more complete details. EKG Summary: 04/23/24 Conclusion Sinus rhythm...normal P axis, V-rate 50- 99 Borderline left axis deviation...QRS axis (-15,-29) Abnormal R-wave progression, early transition...QRS area>0 in V2 Anesthesia Assessment and Plan Anesthesia History Personal History: No History of Anesthesia Complications Family History: No Family History of Anesthesia Complications Exercise Tolerance Exercise Tolerance: Metabolic Equivalents>4 Pertinent Negatives Pertinent Negatives: No Symptoms of GERD, No Major Cardiovascular Symptoms or Complaints and No Major Pulmonary Symptoms or Complaints Cardiac & Pulmonary Exam Cardiac Exam: Normal S1/S2 Heart Sounds Pulmonary Exam: Clear Bilateral Breath Sounds Implantable Cardiac Device Does patient have a Pacemaker or an ICD?: No Airway Exam Known Difficult Airway: No Mallampati Class: 2 Mouth Opening: Normal (> 3cm) Thyromental Distance: Greater than 3 cm Neck Range of Motion: Full ROM Neck Circumference: Normal Teeth Condition: Normal Dentition ASA Classification ASA Score: ASA 2 Emergency Case?: No NPO Status NPO Status: NPO Clears >2 hours, Solids >8 hours Anesthesia Plan Resuscitation Status: Full Code Anesthesia Technique: General Anesthesia Airway Planned: Natural Airway Monitors Used: Standard Monitors Preoperative Comments:: No Versed, causes migraines
[2025-09-30 11:14] VITALS: BMI 29.0
--- NOTE | 2025-09-30 11:31 | BOWEL_PTH ---
PATIENT: Behzad Aleman LOC: [facility] U#:[id number] AGE/SX: 55/M ROOM: RE09/30/[address]: Maria Antonia Morocho : 1970 BED: DIS: 09/30/2025 SPEC #: [id number] RECD: 09/30/25 12:47 STATUS: DASHA RE #: [id number] AHSAN: 09/30/25 11:[address]: Maria Antonia Morocho DEPT: Surgical Specimen RECD BY: Jovana Ennis ENTERED: 09/30/25 12:48 SP TYPE: Bowel OTHR DR: Brennan Clark DNP Tissues: 1 - BIOPSY BOWEL 2 - STOMACH BIOPSY 3 - ESOPHAGUS BIOPSY 4 - BIOPSY BOWEL Procedures: GROSS AND MICRO LEVEL 4 Comments: [id number]
--- NOTE | 2025-09-30 11:57 | W.PM.DSUDISC ---
Date of service: 09/30/25 Discharge Plan Disposition Patient Disposition: Home Condition: Good Discharge Details Reason For Visit: Unintentional weight loss Attending Provider: Maria Antonia Morocho Primary Care Provider: Brennan Cruz Recommendations for Follow Up Recommended tests to be ordered by follow up provider: Follow up pathology Home Meds and New Rx's Prescriptions: Continued trazodone 50 mg tablet 50 mg PO DAILY potassium citrate 15 mEq tablet extended release 15 meq PO BID magnesium citrate 100 mg tablet 100 mg PO BID coenzyme Q10 [CoQ-10] 100 mg capsule 100 mg PO DAILY cholecalciferol (vitamin D3) 50 mcg (2,000 unit) capsule 50 mcg PO DAILY gabapentin 400 mg capsule 400 mg PO TID chlorthalidone 25 mg tablet 25 mg PO DAILY Patient Comments: TAKE ONE-HALF TABLET BY MOUTH EVERY DAY Rx Instructions: take 1/2 by mouth daily. Ajovy Syringe 225 mg/1.5 mL syringe subcut Patient Comments: INJECT 1.5ML UNDER THE SKIN EVERY 30 DAYS Ubrelvy 50 mg tablet 50 mg PO ONCE Patient Comments: TAKE ONE TABLET BY MOUTH EVERY DAY NEEDED (DME) Aerochamber MV Spacer See Rx Instructions .Route Qty: 1 0RF Rx Instructions: As directed albuterol sulfate 90 mcg/actuation HFA aerosol inhaler 2 inh inhalation Q6H PRN (Reason: shortness of breath or wheezing) Qty: 18 4RF losartan 100 mg tablet See Rx Instructions .ROUTE .COMPLEX Qty: 90 4RF Dose Instruction: TAKE ONE TABLET BY MOUTH EVERY DAY Rx Instructions: TAKE ONE TABLET BY MOUTH EVERY DAY Discontinued bisacodyl 5 mg tablet,delayed release (DR/EC) 5 mg PO ONCE Qty: 4 0RF Rx Instructions: Per Colonoscopy bowel prep instructions polyethylene glycol 3350 17 gram/dose powder 238 g PO ONCE Qty: 238 0RF Rx Instructions: For Colonoscopy bowel prep, as directed by office Discharge Instructions Instructions: Colon Polypectomy Additional Instructions: Your upper endoscopy and colonoscopy went well today. On your upper endoscopy you did have some gastritis and small ulcerations of the stomach. Some routine biopsies were performed as well. For your colonoscopy you had 1 small polyp which was removed and will be sent to pathology. Otherwise there were no abnormal findings. We will contact you once these results return. If you have any questions or concerns please contact the surgery office. 1. If tolerated, consume a soft, low fiber diet for 1-2 days. 2[address] Do not drive, drink alcohol, operate machinery, make critical decisions, or do activities that require coordination or balance for 24 hours. 3. Because air was put into your colon during the procedure, expelling air from your rectum (passing gas or farting) is normal. 4. You may not have a bowel movement for 1-3 days because of the colonoscopy prep. This is normal. 5. Go directly to the emergency room if you notice any of the following: Develop chills (warm to touch), or if you have a thermometer and your temperature is above 101 Difficulty breathing or difficultly swallowing Persistent vomiting Severe abdominal pain, other than gas cramps Severe chest pain Black, tarry stools Any bleeding ? exceeding one tablespoon 6. Call your physician if the site where your intravenous was started becomes red, swollen, painful, and warm to touch. 7. Your physician has reviewed your pre-procedure medications. Please continue to take those medications as previously ordered. You will be given specific information/education regarding any changes to your medications before leaving. Stand Alone Forms: Cayla Pearson (SUSIE), Portal Information Activity:: Activity as Tolerated Diet:: As Tolerated Discharge Orders Discharge Orders: Discharge Order (Routine); Ordered 09/30/25 Ordered By: Maria Antonia Morocho
[2025-09-30 11:59] VITALS: BP 93/50; PULSE 72; RESP 16; TEMP 36.3; O2SAT 98
--- NOTE | 2025-09-30 12:00 | W.PM.ENDDOP ---
Date of service: 09/30/25 Time of Service: 12:00 Endoscopy Report DATE OF PROCEDURE: 09/30/25 PRE-OP DIAGNOSIS: Unintentional weight loss POST-OP DIAGNOSIS: other (Gastritis and ulceration ) PROCEDURE: Upper endoscopy with biopsy SURGEON: Maria Antonia Morocho ANESTHESIA TYPE: General:No Airway ESTIMATED BLOOD LOSS: 1 PATHOLOGY: other (Duodenum, antrum, GE junction biopsy ) COMPLICATIONS: None DISPOSITION: PACU INDICATIONS: Patient is a 55yo male who presented to clinic for evaluation for an upper endoscopy and colonoscopy for unintentional weight loss. The risks and benefits of the procedure were discussed with him and consent was obtained prior to the procedure. FINDINGS: Mild duodenitis. Evidence of gastritis with 2 small ulcerations at the antrum. Cold forcep biopsy obtained of duodenum, and antrum, and GE junction. PROCEDURE DESCRIPTION: After adequate sedation, the upper endoscope was inserted and advanced in the duodenum under direct visualization. The scope was withdrawn and the mucosa inspected. The duodenum appeared inflamed and a cold forcep biopsy was performedl. The stomach had evidence of gastritis with two small ulcerations at the antrum. ?The antrum area was biopsied and also checked for H. pylori.? Retroflexion view in the stomach was normal. At the lower esophagus Z line area, this was inspected and noted to be normal. No evidence of Padilla?s esophagus or strictures. A biopsy was performed at the GE junction. Otherwise, the esophagus was normal. The scope was completely withdrawn from the patient. The patient tolerated the procedure well with no immediate complications.
--- NOTE | 2025-09-30 12:12 | COLE_ITS ---
Date of service: 09/30/25 Time of Service: 12:12 Colonoscopy Report Date of procedure: 09/30/25 Pre-op diagnosis general: Unintentional weight loss Post-op diagnosis procedure note: other (Colon polyp ) Procedure: Colonoscopy with polypectomy Surgeon: Maria Antonia Morocho Anesthesia Type: General:No Airway Estimated blood loss (mL): 1 Pathology: other (Rectal polyp) Complications: None Disposition: PACU Indications: Patient is a 55yo male who presented to clinic for evaluation for an upper endoscopy and colonoscopy for unintentional weight loss. The risks and benefits of the procedure were discussed with him and consent was obtained prior to the procedure. Prep: Miralax/Dulcolax Procedure Start Time: 11:29 Procedure End Time: 11:52 Retraction Time: 9 Findings: Small, 5mm rectal polyp removed with cold forceps. Otherwise normal colonoscopy. Procedure Description: The patient was brought to the endoscopy suite and placed in the left lateral decubitus position. After induction of IV sedation, a digital rectal exam was pe rformed.. Digital exam was normal. The colonoscope was then passed to the cecum without difficulty. Cecal intubation was confirmed by the identification of the appendiceal orifice and the ileocecal valve. Upon withdrawing the colonoscope, all mucosal surfaces were inspected. The prep was noted to be adequate. In the rectum, there was a 5mm polyp, which was removed using cold forceps in its entirety. Specimen was retrieved for pathological analysis. There was no other evidence of mucosal abnormality, polyp or cancer. Retroflexion in the rectum was unremarkable. The patient tolerated the procedure well with no complications. Postoperatively, the patient was transferred to the recovery room in stable condition. [place] Bowel Prep [place] Bowel Prep Right Colon: 3 Left Colon: 3 Transverse Colon: 3 Total Score: 9
[2025-09-30 12:25] VITALS: BP 110/76; PULSE 71; RESP 16; TEMP 36.2; O2SAT 100
--- NOTE | 2025-09-30 13:03 | W.ANESPOSTOP ---
Postoperative Evaluation Date, Time and Location Date Performed: 09/30/25 Time Performed: 11:59 Patient Location: Day Surgery Unit Vital Signs Most Recent Imported Vital Signs: Most Recent Vital Signs Temp Pulse Resp BP Pulse Ox 36.2 C L 71 16 110/76 100 09/30/25 12:25 09/30/25 12:25 09/30/25 12:09/30/25 12:09/30/25 12:25 Pain Score Most Recent Pain Score: Most Recent Pain Score Pain Level 0 09/30/25 12:25 Assessment Mental Status: Awake (Alert & Oriented to Patient Baseline) Airway and Respiratory Function: Patent airway with normal (patient baseline) respiratory exam Cardiovascular Function: Hemodynamically Stable Hydration Status: Adequately Hydrated Nausea & Vomiting: No Nausea or Vomiting Pain: Pt. Denies Any Pain Peripheral Nerve Block: Patient did not receive a nerve block
== END 2025-09-30 12:42 | disposition home or self-care (01) ==
PROVIDERS: PCP Nurse Practitioner Family; Visit Provider Student in an Organized Health Care Education/Training Program
PROC: (CPT 45380; principal; 2025-09-30 11:45)
DX: R63.4 Abnormal weight loss (principal); K29.70 Gastritis, unspecified, without bleeding; D12.8 Benign neoplasm of rectum; K31.9 Disease of stomach and duodenum, unspecified; K31.A19 Gastric intestinal metaplasia without dysplasia, unspecified site
CPT/HCPCS: 45380; 43239; 88305; J2371; J2704